=== PATIENT | female | born 1965 | race Caucasian/White ===

== ENCOUNTER 2020-06-13 10:27 | Emergency (ER) | payer OTHER ==
[~2020-06-13] VITALS: Ht 160 cm; Wt 99.8 kg
== END 2020-06-13 17:06 | disposition home or self-care (01) ==
LOC: ER1 10:27
DX: U07.1 COVID-19 (principal); I10 Essential (primary) hypertension; Z88.8 Allergy status to other drugs, medicaments and biological substances
CPT/HCPCS: 71045; 99284; M0239; U0002

== ENCOUNTER → 2020-09-12 | Outpatient (CLI) | payer OTHER | LOC: NM 12:42 | DX: R07.9 Chest pain, unspecified (principal) | CPT/HCPCS: 93017 ==

== ENCOUNTER → 2022-01-15 | Outpatient (CLI) | payer OTHER | LOC: LAB 16:26 | DX: R50.9 Fever, unspecified (principal) | CPT/HCPCS: 36415; 87040 ==